=== PATIENT | male | born 1950 | race Caucasian/White ===

== ENCOUNTER 2024-07-19 09:46 | Day surgery (SDC) | payer MEDICARE ==
[~2024-07-19] VITALS: Ht 188 cm; Wt 118.4 kg
[~2024-07-19 09:46] MED LIST: FELODIPINE ER5 M2; Lactated Ringer's 1,000 ML IV ONE; OLME20; propofoL 50 ML IV ONE
[2024-07-19] MEDS ORDERED: HYDCHL25 (10:47)
[2024-07-19] MEDS ORDERED: METF500C (10:47)
[2024-07-19] MEDS ORDERED: OZEMPIC2 MG/0.75 (10:47)
[2024-07-19] MEDS ORDERED: Lactated Ringer's 1,000 ML IV ONE (11:20)
[2024-07-19 12:26] VITALS: BP 123/56
== END 2024-07-19 12:10 | disposition home or self-care (01) ==
LOC: ORSCSDS 09:46
PROVIDERS: Specialist
PROC: 0DJD8ZZ Inspection of Lower Intestinal Tract, Via Natural or Artificial Opening Endoscopic (ICD-10-PCS; principal; 2024-07-19 11:15)
DX: Z12.11 Encounter for screening for malignant neoplasm of colon (principal); Z86.0101 Personal history of adenomatous and serrated colon polyps; Z86.0102 Personal history of hyperplastic colon polyps; K57.30 Diverticulosis of large intestine without perforation or abscess without bleeding; K64.8 Other hemorrhoids; Z79.85 Long-term (current) use of injectable non-insulin antidiabetic drugs; Z79.84 Long term (current) use of oral hypoglycemic drugs; Z79.899 Other long term (current) drug therapy
CPT/HCPCS: 82947; J2704; J7120

== ENCOUNTER 2024-12-30 09:23 | Inpatient (IN) | payer MEDICARE ==
[~2024-12-30] VITALS: Ht 190.5 cm; Wt 111.7 kg
[~2024-12-30 09:23] MED LIST changes: -FELODIPINE ER5 M2; +FELODIPINE ER5 M2 PO; +HYDCHL25 PO; -Lactated Ringer's 1,000 ML IV ONE; +METF500C PO; -OLME20; +OLME20 PO; +OZEMPIC2 MG/0.75 SC; -propofoL 50 ML IV ONE
[2024-12-30 10:16] LABS: BASOPHILS ABSOLUTE AUTO 0.06 K/mm3 (0.00-0.23); BASOPHILS PERCENT AUTO 1 % (0-2); EOSINOPHILS ABSOLUTE AUTO 0.24 K/mm3 (0.00-0.68); EOSINOPHILS PERCENT AUTO 4 % (0-6); Hematocrit 43.2 % (37.0-53.0); Hemoglobin 14.4 g/dL (13.5-17.5); IMMATURE GRAN ABSOLUTE AUTO 0.02 K/mm3 (0.00-0.10); IMMATURE GRAN PERCENT AUTO 0 % (0-1); LYMPHOCYTES ABSOLUTE AUTO 2.59 K/mm3 (0.84-5.20); LYMPHOCYTES PERCENT AUTO 38 % (21-46); MONOCYTES ABSOLUTE AUTO 0.45 K/mm3 (0.16-1.47); MONOCYTES PERCENT AUTO 7 % (4-13); Mean Corpuscular HGB Conc 33.3 g/dL (31.5-36.5); Mean Corpuscular Volume 94 fL (80-100); NEUTROPHILS ABSOLUTE AUTO 3.48 K/mm3 (1.96-9.15); NEUTROPHILS PERCENT AUTO 51 % (41-73); NRBC ABSOLUTE 0.00 K/mm3 (0.00-0.02); NRBC Auto 0.0 /100 WBC (0.0-0.2); Platelet Count 148 K/mm3 (150-400); RDW Coefficient Variation 14.1 % (11.7-14.2); RDW Standard Deviation 48.0 fL (35.1-46.3)
[2024-12-30 10:27] LABS: Alanine Aminotransfer (ALT/SGP 45.0 U/L (12-78); Albumin, Blood 4.3 g/dL (3.4-5.0); Albumin/Globulin Ratio 1.0 (0.8-1.8); Anion Gap 8.0 mmol/L (3-11); Aspartate Aminotrans (AST/SGOT 27.0 U/L (12-37); Bilirubin, Total 0.7 mg/dL (0.1-1.0); Blood Urea Nitrogen 16.0 mg/dL (8-24); CO2, Blood 26.0 mmol/L (21-32); Calcium, Blood 9.5 mg/dL (8.5-10.1); Chloride, Blood 107.0 mmol/L (98-108); Creatinine, Blood 0.93 mg/dL (0.60-1.20); Globulin, Blood 4.2 g/dL (2.2-4.0); Glucose, Blood 131.0 mg/dL (70-99); Potassium, Blood 3.8 mmol/L (3.5-5.5); Sodium, Blood 137.0 mmol/L (136-145); Total Protein, Blood 8.5 g/dL (6.4-8.2)
[2024-12-30] MEDS ORDERED: FLU VACC TS2025(65UP)/MF59C/PF 45 MCG/0.5 ML SYRINGE IM SCH (13:10)
[2024-12-30] MEDS ORDERED: NS 1,000 ML IV ONE (14:00)
[2024-12-30] MEDS ORDERED: HydrALAZINE HCl 20 MG / ML 1ML Vial IV PRN (14:30)
[2024-12-30 14:52] LABS: CHOL/HDL RATIO 5.0; Cholesterol 176 mg/dL (50-200); HDL Cholesterol 35 mg/dL (>39); LDL/HDL RATIO 3.1; Low Density Lipoprotein Chol 109 mg/dL (0-110); Triglycerides 161 mg/dL (30-160); Very Low Density Lipoprot Chol 32 mg/dL (6-32)
[2024-12-30 14:57] VITALS: BP 160/92
[2024-12-30] MEDS ORDERED: Labetalol HCL 5 MG/ML 4ML Injection (Single Dose) IV PRN (15:35)
[2024-12-30] MEDS ORDERED: Insulin Human Lispro 100 Units/ML 3ML Syringe SC SCH ×2 (16:30→18:00)
--- NOTE | 2024-12-30 17:08 | NUR ---
CALL TO PROVIDER INCREASE IN PVC'S ON TELE MONITOR, MD ANNE NOTIFIED: EKG AND TROPONIN ORDERED.
[2024-12-30] MEDS ORDERED: Enoxaparin 40 MG/0.4 ML SYR SC SCH (18:00)
--- NOTE | 2024-12-30 19:05 | NUR ---
SHIFT SUMMARY: CARE ASSUMED AT APPROX:1445 PT A/O X4, PLEASANT AND COOPERATIVE WITH CARE, ABLE TO COMMUNICATE NEEDS, INDEPENDENT IN ROOM, ORIENTED TO CALL DON T FALL, USES CALL LIGHT APPROPRIATELY. EKG PERFORMED AT BEDSIDE, SEE CALL TO PROVIDER NOTE. PT DENIES CHEST PAIN OR PRESSURE BUT ENDORSES CHEST TIGHTNESS THAT IS RELIEVED WITH SITTING UP, PT STATES, IT COMES AND GOES, RIGHT NOW IT S ABOUT A 2/10 BUT SOMETIMES IT'S WORSE. MD WESTON TO BEDSIDE TO REVIEW EKG W/PT. FIRST HALF OF STRESS TEST COMPLETED IN ED, SECOND HALF EXPECTED TOMORROW (12/31) AT 0900, NO CAFFEINE AFTER 1900 ON 12/30, NPO AT MIDNIGHT, MAY CONTINUE TO HAVE WATER UNRESTRICTED, PT VERBALIZED UNDERSTANDING. PT STATES DAUGHTER MENDY IS HIS POA. IF SHE COMES TO VISIT SHE WILL BRING PAPERWORK WITH HER, COMING FROM [place], PHONE NUMBER: [phone]. SPOKE TO HER ON SPEAKER PHONE WITH HER DAD, SHE IS AN RN IN [place], ASKS GREAT QUESTIONS AND IS VERY NICE. PT IN BED, SCDS ON, ORIENTED TO CALL LIGHT AND CALL DON'T FALL.
[2024-12-30 19:48] VITALS: BP 151/101
[2024-12-30] MEDS ORDERED: Felodipine 2.5 MG TAB.ER.24H PO SCH (21:00)
[2024-12-31] VITALS (7 sets, daily range): BP systolic 127–153; BP diastolic 65–91
[2024-12-31 04:32] LABS: BASOPHILS ABSOLUTE AUTO 0.04 K/mm3 (0.00-0.23); BASOPHILS PERCENT AUTO 1 % (0-2); EOSINOPHILS ABSOLUTE AUTO 0.21 K/mm3 (0.00-0.68); EOSINOPHILS PERCENT AUTO 3 % (0-6); Hematocrit 39.5 % (37.0-53.0); Hemoglobin 13.4 g/dL (13.5-17.5); IMMATURE GRAN ABSOLUTE AUTO 0.01 K/mm3 (0.00-0.10); IMMATURE GRAN PERCENT AUTO 0 % (0-1); LYMPHOCYTES ABSOLUTE AUTO 2.09 K/mm3 (0.84-5.20); LYMPHOCYTES PERCENT AUTO 29 % (21-46); MONOCYTES ABSOLUTE AUTO 0.44 K/mm3 (0.16-1.47); MONOCYTES PERCENT AUTO 6 % (4-13); Mean Corpuscular HGB Conc 33.9 g/dL (31.5-36.5); Mean Corpuscular Volume 92 fL (80-100); NEUTROPHILS ABSOLUTE AUTO 4.48 K/mm3 (1.96-9.15); NEUTROPHILS PERCENT AUTO 62 % (41-73); NRBC ABSOLUTE 0.00 K/mm3 (0.00-0.02); NRBC Auto 0.0 /100 WBC (0.0-0.2); Platelet Count 147 K/mm3 (150-400); RDW Coefficient Variation 14.1 % (11.7-14.2); RDW Standard Deviation 47.3 fL (35.1-46.3)
[2024-12-31 04:56] LABS: Albumin, Blood 3.9 g/dL (3.4-5.0); Anion Gap 10 mmol/L (3-11); Blood Urea Nitrogen 13 mg/dL (8-24); CO2, Blood 26 mmol/L (21-32); Calcium, Blood 9.0 mg/dL (8.5-10.1); Chloride, Blood 104 mmol/L (98-108); Creatinine, Blood 0.83 mg/dL (0.60-1.20); Glucose, Blood 128 mg/dL (70-99); Magnesium, Blood 2.4 mg/dL (1.6-2.4); Phosphorus, Blood 3.0 mg/dL (2.5-4.9); Potassium, Blood 3.8 mmol/L (3.5-5.5); Sodium, Blood 136 mmol/L (136-145)
--- NOTE | 2024-12-31 05:41 | NUR ---
SHIFT SUMMARY PATIENT A/O4. PLEASANT AND COOPERATIVE WITH CARE. DENID CP, SOB, OR OTHER CARDIAC SYMPTOMS OVERNIGHT. UP TO RR TO VOID SEVERAL TIMES INDEPENDENTLY. NPO AFTER MIDNIGHT EXCEPT WATER. PATIENT DID NOT SLEEP MUCH. SR 60-70'S ON MONITOR WITH FREQUENT PVC'S. PLAN FOR STRESS TEST TODAY. PLAN OF CARE ONGOING.
[2024-12-31] MEDS ORDERED: Aminophylline 250MG / 10ML 10 ML Vial ONE (08:00)
[2024-12-31] MEDS ORDERED: Felodipine 2.5 MG TAB.ER.24H PO SCH (09:00)
--- NOTE | 2024-12-31 17:32 | NUR ---
PT IS A&Ox4 AND ABLE TO MAKE NEEDS KNOWN. HE IS ON RA W/O2 SATS > 92%. HE IS INDEPENDENT W/AMBULATION. NO NEEDS OR CONCERNS NOTED @ THIS TIME. BED IN LOW POSITION, CALL LIGHT AND PERSONAL BELONGINGS IN REACH.
[2025-01-01 03:59] VITALS: BP 133/82
[2025-01-01 05:36] LABS: BASOPHILS ABSOLUTE AUTO 0.04 K/mm3 (0.00-0.23); BASOPHILS PERCENT AUTO 1 % (0-2); EOSINOPHILS ABSOLUTE AUTO 0.13 K/mm3 (0.00-0.68); EOSINOPHILS PERCENT AUTO 2 % (0-6); Hematocrit 40.0 % (37.0-53.0); Hemoglobin 13.4 g/dL (13.5-17.5); IMMATURE GRAN ABSOLUTE AUTO 0.03 K/mm3 (0.00-0.10); IMMATURE GRAN PERCENT AUTO 0 % (0-1); LYMPHOCYTES ABSOLUTE AUTO 2.23 K/mm3 (0.84-5.20); LYMPHOCYTES PERCENT AUTO 31 % (21-46); MONOCYTES ABSOLUTE AUTO 0.60 K/mm3 (0.16-1.47); MONOCYTES PERCENT AUTO 8 % (4-13); Mean Corpuscular HGB Conc 33.5 g/dL (31.5-36.5); Mean Corpuscular Volume 93 fL (80-100); NEUTROPHILS ABSOLUTE AUTO 4.10 K/mm3 (1.96-9.15); NEUTROPHILS PERCENT AUTO 58 % (41-73); NRBC ABSOLUTE 0.00 K/mm3 (0.00-0.02); NRBC Auto 0.0 /100 WBC (0.0-0.2); Platelet Count 152 K/mm3 (150-400); RDW Coefficient Variation 14.0 % (11.7-14.2); RDW Standard Deviation 47.4 fL (35.1-46.3)
[2025-01-01 05:59] LABS: Albumin, Blood 3.9 g/dL (3.4-5.0); Anion Gap 8 mmol/L (3-11); Blood Urea Nitrogen 16 mg/dL (8-24); CO2, Blood 28 mmol/L (21-32); Calcium, Blood 9.4 mg/dL (8.5-10.1); Chloride, Blood 105 mmol/L (98-108); Creatinine, Blood 0.90 mg/dL (0.60-1.20); Glucose, Blood 120 mg/dL (70-99); Magnesium, Blood 2.6 mg/dL (1.6-2.4); Phosphorus, Blood 3.6 mg/dL (2.5-4.9); Potassium, Blood 3.9 mmol/L (3.5-5.5); Sodium, Blood 137 mmol/L (136-145)
[2025-01-01 07:28] VITALS: BP 151/79
[2025-01-01 11:44] VITALS: BP 154/84
[2025-01-01 16:27] VITALS: BP 149/85
--- NOTE | 2025-01-01 17:33 | NUR ---
PT IS A&Ox4 AND ABLE TO MAKE NEEDS KNOWN. HE IS ON RA W/O2 SATS > 92%. HE IS INDEPENDENT FOR AMBULATION. HE WILL BE NPO @ MIDNIGHT TONIGHT FOR ANGIOGRAM TOMORROW. NO OTHER NEEDS OR CONCERNS NOTED @ THIS TIME. BED IN LOW POSITION, CALL LIGHT AND PERSONAL BELONGINGS IN REACH.
[2025-01-01 20:05] VITALS: BP 125/67
[2025-01-01 23:59] VITALS: BP 145/78
[2025-01-02] VITALS (10 sets, daily range): BP systolic 120–167; BP diastolic 53–102
[2025-01-02] MEDS ORDERED: Insulin Regular 100 UNIT/ML 10ML Vial SC SCH
[2025-01-02 05:05] LABS: BASOPHILS ABSOLUTE AUTO 0.03 K/mm3 (0.00-0.23); BASOPHILS PERCENT AUTO 1 % (0-2); EOSINOPHILS ABSOLUTE AUTO 0.15 K/mm3 (0.00-0.68); EOSINOPHILS PERCENT AUTO 2 % (0-6); Hematocrit 38.7 % (37.0-53.0); Hemoglobin 12.8 g/dL (13.5-17.5); IMMATURE GRAN ABSOLUTE AUTO 0.01 K/mm3 (0.00-0.10); IMMATURE GRAN PERCENT AUTO 0 % (0-1); LYMPHOCYTES ABSOLUTE AUTO 2.02 K/mm3 (0.84-5.20); LYMPHOCYTES PERCENT AUTO 32 % (21-46); MONOCYTES ABSOLUTE AUTO 0.56 K/mm3 (0.16-1.47); MONOCYTES PERCENT AUTO 9 % (4-13); Mean Corpuscular HGB Conc 33.1 g/dL (31.5-36.5); Mean Corpuscular Volume 92 fL (80-100); NEUTROPHILS ABSOLUTE AUTO 3.52 K/mm3 (1.96-9.15); NEUTROPHILS PERCENT AUTO 56 % (41-73); NRBC ABSOLUTE 0.00 K/mm3 (0.00-0.02); NRBC Auto 0.0 /100 WBC (0.0-0.2); Platelet Count 141 K/mm3 (150-400); RDW Coefficient Variation 14.1 % (11.7-14.2); RDW Standard Deviation 46.8 fL (35.1-46.3)
[2025-01-02 05:27] LABS: Alanine Aminotransfer (ALT/SGP 41.0 U/L (12-78); Albumin, Blood 3.8 g/dL (3.4-5.0); Albumin/Globulin Ratio 1.1 (0.8-1.8); Anion Gap 7.0 mmol/L (3-11); Aspartate Aminotrans (AST/SGOT 26.0 U/L (12-37); Bilirubin, Total 0.8 mg/dL (0.1-1.0); Blood Urea Nitrogen 18.0 mg/dL (8-24); CO2, Blood 29.0 mmol/L (21-32); Calcium, Blood 9.3 mg/dL (8.5-10.1); Chloride, Blood 104.0 mmol/L (98-108); Creatinine, Blood 0.96 mg/dL (0.60-1.20); Globulin, Blood 3.6 g/dL (2.2-4.0); Glucose, Blood 151.0 mg/dL (70-99); Potassium, Blood 3.9 mmol/L (3.5-5.5); Sodium, Blood 136.0 mmol/L (136-145); Total Protein, Blood 7.4 g/dL (6.4-8.2)
--- NOTE | 2025-01-02 06:38 | NUR ---
PT STABLE THROUGHOUT SHIFT. PT REMAINS AOX4, INDEPENDENT IN ROOM. NO C/O CP OR DYSPNEA DURING THE NIGHT. VITAL SIGNS REMAIN WNL. PT HAS BEEN NPO SINCE MIDNIGHT FOR PROCEDURE IN AM.
[2025-01-02 09:24] LABS: Prothrombin Time Results 11.4 Sec (9.7-11.5)
[2025-01-02] MEDS ORDERED: Verapamil HCL 2.5 MG/ML 2ML Injection ONE (13:06)
[2025-01-02] MEDS ORDERED: Heparin Sodium 1000 Units/ML 10ML MDV ONE ×2 (13:07→14:47)
[2025-01-02] MEDS ORDERED: NS 250 ML IV ONE (13:07)
[2025-01-02] MEDS ORDERED: Nitroglycerin 2 MG/20 ML BTL ONE (13:07)
[2025-01-02] MEDS ORDERED: NS 1,000 ML IV ONE ×2 (13:07→13:41)
[2025-01-02] MEDS ORDERED: Midazolam HCl 1MG / ML 2ML Vial ONE (13:41)
[2025-01-02] MEDS ORDERED: FentaNYL Citrate 50 MCG/ML 2 ML Injection ONE (13:41)
[2025-01-02] MEDS ORDERED: NS 500 ML IV SCH (15:30)
--- NOTE | 2025-01-02 18:23 | NUR ---
SHIFT SUMMARY; ASSUMED CARE AT 0700. A/A/OX4. DENIES CP OR SOB T/O SHIFT. STORE SHOPPER TODAY FOR ANGIO, 1 STENT PLACED. TR BAND RECOVERY PER ORDERS. NO SWELLING OR HEMATOMA, CAP REFILL TO EXTREMETIES <3. INDEPENDANT IN ROOM, VSS. WILL CONTINUE TO MONITOR AND TREAT UNTIL REPORT GIVEN TO NOC SHIFT RN.
--- NOTE | 2025-01-02 19:46 | NUR ---
ASSUMPTION OF CARE ASSUMED PT'S CARE AT 1900,BEDSIDE REPORT COMPLETED.PT SITTING UP IN BED SURFING THE NET ON HIS TABLET.PLAN OF CARE REVIEWED.TR BAND IN PLACE AT TIME OF REPORT,REMOVED AT 193.NO BLEEDING,SWELLING OR BRUISING NOTED AT THE SITE.AREA CLEANSED WITH CHLORO PREP SWAB,TEGADERM DRESSING APPLIED.PT INFORMED TO REPORT BLEEDING IF NOTED.PT VERBALIZES UNDERSTANDING.CALL LIGHT AND PT'S ITEMS WITHIN REACH.MONITORING ONGOING PER CAREPLAN.
[2025-01-03 00:27] VITALS: BP 121/96
[2025-01-03 04:44] VITALS: BP 137/96
[2025-01-03 08:18] VITALS: BP 154/88
[2025-01-03 10:38] LABS: BASOPHILS ABSOLUTE AUTO 0.05 K/mm3 (0.00-0.23); BASOPHILS PERCENT AUTO 1 % (0-2); EOSINOPHILS ABSOLUTE AUTO 0.17 K/mm3 (0.00-0.68); EOSINOPHILS PERCENT AUTO 2 % (0-6); Hematocrit 41.8 % (37.0-53.0); Hemoglobin 13.9 g/dL (13.5-17.5); IMMATURE GRAN ABSOLUTE AUTO 0.02 K/mm3 (0.00-0.10); IMMATURE GRAN PERCENT AUTO 0 % (0-1); LYMPHOCYTES ABSOLUTE AUTO 2.16 K/mm3 (0.84-5.20); LYMPHOCYTES PERCENT AUTO 26 % (21-46); MONOCYTES ABSOLUTE AUTO 0.62 K/mm3 (0.16-1.47); MONOCYTES PERCENT AUTO 7 % (4-13); Mean Corpuscular HGB Conc 33.3 g/dL (31.5-36.5); Mean Corpuscular Volume 92 fL (80-100); NEUTROPHILS ABSOLUTE AUTO 5.39 K/mm3 (1.96-9.15); NEUTROPHILS PERCENT AUTO 64 % (41-73); NRBC ABSOLUTE 0.00 K/mm3 (0.00-0.02); NRBC Auto 0.0 /100 WBC (0.0-0.2); Platelet Count 140 K/mm3 (150-400); RDW Coefficient Variation 13.9 % (11.7-14.2); RDW Standard Deviation 46.8 fL (35.1-46.3)
[2025-01-03] MEDS ORDERED: ASPI81CH PO (11:00)
[2025-01-03] MEDS ORDERED: ATOR40TA PO (11:00)
[2025-01-03] MEDS ORDERED: CLOP75 PO (11:01)
[2025-01-03 11:09] LABS: Anion Gap 9.0 mmol/L (3-11); Blood Urea Nitrogen 16.0 mg/dL (8-24); CO2, Blood 25.0 mmol/L (21-32); Calcium, Blood 9.2 mg/dL (8.5-10.1); Chloride, Blood 103.0 mmol/L (98-108); Creatinine, Blood 0.88 mg/dL (0.60-1.20); Glucose, Blood 159.0 mg/dL (70-99); Potassium, Blood 3.3 mmol/L (3.5-5.5); Sodium, Blood 134.0 mmol/L (136-145)
== END 2025-01-03 11:30 | disposition home or self-care (01) | DRG 322 ==
LOC: ER 09:23 → PCU 09:24 → ER 09:24 → ERHOLD 09:24 → PCU 14:52 → ERHOLD 14:52 → PCU 01-01 14:43
PROVIDERS: Emergency Medicine; Internal Medicine; ADMIT Hospitalist
PROC: 3E02340 Introduction of Influenza Vaccine into Muscle, Percutaneous Approach (ICD-10-PCS; 2024-12-30)
PROC: 027034Z Dilation of Coronary Artery, One Artery with Drug-eluting Intraluminal Device, Percutaneous Approach (ICD-10-PCS; principal; 2025-01-02)
PROC: B2111ZZ Fluoroscopy of Multiple Coronary Arteries using Low Osmolar Contrast (ICD-10-PCS; 2025-01-02)
DX: I25.110 Atherosclerotic heart disease of native coronary artery with unstable angina pectoris (principal); I10 Essential (primary) hypertension; E11.9 Type 2 diabetes mellitus without complications; I44.7 Left bundle-branch block, unspecified; E83.119 Hemochromatosis, unspecified; Z79.899 Other long term (current) drug therapy; Z79.84 Long term (current) use of oral hypoglycemic drugs; Z87.891 Personal history of nicotine dependence; Z88.5 Allergy status to narcotic agent; Z98.890 Other specified postprocedural states; Z23 Encounter for immunization
CPT/HCPCS: 36415; 71045; 76937; 78452; 80048; 80053; 80061; 80069; 82947; 83735; 84443; 84484; 85025; 85347; 85610; 93005; 93010; 93017; 93458; 94762; 96372; 99152; 99153; 99285-25; A9270; A9500; C1725; C1769; C1874; C1887; C1894; C9600; G0378; J0280; J1644; J1650; J2250; J2785; J3010; J7030; J7050; Q9967